=== PATIENT | male | born 1960 | race Caucasian/White ===

== ENCOUNTER → 2018-10-01 | Outpatient (CLI) | payer BC ==
--- NOTE | 2018-10-01 15:16 | CTL ---
EXAMINATION TYPE: CT Low Dose Lung DATE OF EXAM ORDERED: 10/01/2018 HISTORY: Personal history tobacco use. Lung cancer screening CT DLP: 98.[address] CTDI: 2.8 mGy Automated exposure control for dose reduction was used. SCREENING VISIT: 1 COMPARISON: None TECHNIQUE: Low dose computed tomography scan was performed through the chest at 1 mm thick sections a nd reconstructed images in the coronal plane at [address] DIAGNOSTIC QUALITY: Satisfactory FINDINGS: LUNG NODULES: None. LUNGS: COPD: Severity: Moderate Fibrosis: Severity: Moderate Lymph nodes: There is an retrocaval pretracheal lymph node shows a short axis of 12 mm axial image 12 6 Other findings: Some areas of platelike thickening along the patient or right upper lobe axial image 131 as well as p latelike area of soft tissue in the right upper lobe axial image 124 measuring less than 5 mm in size . RIGHT PLEURAL SPACE: Effusion: None Calcification: None Thickening: None Pneumothorax: None LEFT PLEURAL SPACE: Effusion: None Calcification: None Thickening: None Pneumothorax: None HEART: Heart Size: Small Coronary calcification: Minimal Pericardial effusion: None OTHER FINDINGS: Upper abdomen: 2 hypodense foci within the liver measuring approximately 1 cm and 1.2 cm axial image 300 statistically are likely represent cysts Bony thorax: Thoracic spondylosis noted Supraclavicular region: Unremarkable Other: IMPRESSION: Benign FOLLOW UP CT CHEST RECOMMENDATION: [address] LUNG RAD: 2S Patient's abnormal enlarged retrocaval pretracheal lymph node is potentially clinically significant. Consider dedicated contrast-enhanced chest CT follow-up.
== END | disposition home or self-care (01) ==
LOC: RADCTMAIN 12:55
PROVIDERS: ATTEND Nurse Practitioner
DX: Z12.2 Encounter for screening for malignant neoplasm of respiratory organs (principal); Z87.891 Personal history of nicotine dependence

== ENCOUNTER 2018-10-26 11:07 | Day surgery (SDC) | payer BC ==
[2018-10-21 15:53] VITALS: BMI 24.8
[~2018-10-26 11:07] MED LIST: LACTATED RINGERS 1,000 ML IV SCH; LIDOCAINE 1% 20 ML VIAL (10MG/ML) FOR IV START INTRADERMA PRN
[2018-10-26 11:22] VITALS: TEMP 98.3
[2018-10-26] MEDS ORDERED: LACTATED RINGERS 1,000 ML IV ONE (11:22)
[2018-10-26] MEDS ORDERED: LIDOCAINE 1% 20 ML VIAL (10MG/ML) FOR IV START INTRADERMA ONE (11:26)
[2018-10-26] MEDS ORDERED: PROPOFOL 10 MG/ML 20 ML VIAL IV ONE (11:53)
[2018-10-26 12:21] VITALS: RESP 16
--- NOTE | 2018-10-26 12:27 | P.PCN ---
Date of Procedure: 10/26/18 Procedure(s) Performed: Procedure: Total colonoscopy. Preoperative diagnosis: Screening for neoplasia. Postoperative diagnosis: Diverticulosis with no evidence of acute diverticulitis, strictures, polyps or cancer. Preparation: HalfLytely prep. Sedation: Was provided by anesthesia. Brief clinical history: The patient is a 58-year-old male who is scheduled for this evaluation for screening for neoplasia age being his risk factor. There is no family history of colon cancer. The patient has no abdominal complaints, bleeding or anemia. This would be his first colonoscopy. Procedure: With the patient on his left lateral decubitus position and after informed consent and adequate sedation, the perianal area was inspected and it did not show any fissures or fistulas. There were no masses felt on digital rectal examination. The Olympus CFH 190L video colonoscope was then inserted in the rectum in the usual fashion and advanced to the cecum. The mucosa appeared healthy. There was multiple diverticular orifices seen scattered along the length of the bowel mostly on the left side with no evidence of acute diverticulitis or strictures. The mucosa appeared healthy. No polyps or tumors were seen. I retroflexed the endoscope in the rectum before the endoscope was withdrawn. The patient tolerated the procedure well. Plan: The patient was reassured. Discussed dietary measures. He will follow up with you as planned and I recommended repeat exam in 10 years.
[2018-10-26 12:53] VITALS: BP 143/84; PULSE 69
== END 2018-10-26 13:05 | disposition home or self-care (01) ==
LOC: ORWHC2ENDO 11:07
DX: Z12.11 Encounter for screening for malignant neoplasm of colon (principal); F17.210 Nicotine dependence, cigarettes, uncomplicated; Z79.899 Other long term (current) drug therapy
CPT/HCPCS: J2704; G0121; 45378

== ENCOUNTER → 2018-10-27 | Outpatient (CLI) | payer BC ==
--- NOTE | 2018-10-27 14:04 | CT ---
EXAMINATION TYPE: CT chest w con DATE OF EXAM: 10/27/2018 COMPARISON: 10/01/2018 HISTORY: Enlarged lymph nodes CT DLP: 319.2 mGycm Automated exposure control for dose reduction was used. CONTRAST: CT scan of the chest is performed with IV Contrast, patient injected with 100 mL of Isovue 300. FINDINGS: LUNGS: The lungs are grossly clear, there is no concerning parenchymal mass or nodule identified. T here is no pleural effusion or pneumothorax seen. The tracheobronchial tree is patent. Scattered emp hysematous changes noted. MEDIASTINUM: Pretracheal lymph node is noted and measures 1.2 cm in short axis. There are several sub centimeter lymph nodes within the AP window as well as the high right paratracheal region. Right elsa r adenopathy measures 1.5 cm. 1 cm lymph node left hilum. Thoracic aorta is of normal caliber. The he art is not enlarged. UPPER ABDOMEN: Too small to characterize hypoattenuating lesion left hepatic lobe measuring 6 mm as w ell as an additional lesion anterior segment right hepatic lobe measuring 9 mm. These likely reflect a small cyst. OTHER: No additional significant abnormality is seen. IMPRESSION: 1. Nonspecific mediastinal and hilar adenopathy. Correlate clinically and appropriate follow-up advis ed.
== END | disposition home or self-care (01) ==
LOC: RADCTMAIN 13:35
PROVIDERS: ATTEND Family Medicine
DX: R59.0 Localized enlarged lymph nodes (principal)
CPT/HCPCS: 71260; Q9967

== ENCOUNTER → 2018-12-11 | Outpatient (CLI) | payer BC ==
--- NOTE | 2018-12-14 06:26 | PE ---
EXAMINATION TYPE: PET CT fusion skull to thigh DATE OF EXAM: 12/11/2018 COMPARISON: Chest CT October 27, 2018 HISTORY: Solitary pulmonary nodule TECHNIQUE: Following the intravenous administration of 10.56 mCi of F-18 FDG, whole body images are performed from the skull base to the midthigh. Images are reviewed on the computer in the coronal, a xial, and sagittal planes. Reconstructed rotating images are created on independent workstation and reviewed on the computer. A noncontrast CT is performed in conjunction with the PET scan. SCAN: Initial Scan FINDINGS: SKULL BASE AND NECK: No areas of suspicious hypermetabolic uptake. CHEST, MEDIASTINUM, AND HILAR REGION: Mild to moderate underlying emphysematous changes redemonstrate d. No suspicious parenchymal nodules or areas of hypermetabolic uptake in the lungs. There is hypermetabolic roughly 1 cm left hilar lymph node axial image 77 with max SUV of 2.50. There is prominent left AP window lymph node with mild hypermetabolic uptake axial image 77 Max SUV of 2.3 2. There is prominent roughly 1 cm right tracheobronchial lymph node axial image 79, max SUV of 2.49. There is prominent roughly 1 cm right hilar lymph node axial image 82 with max SUV of 2.9. There are prominent subcarinal lymph nodes, largest left aspect measures 2.2 x 1.0 cm axial image 87, max SUV is 2.86. ABDOMEN AND PELVIS: No suspicious areas of abnormal hypermetabolic uptake. OSSEOUS STRUCTURES: No suspicious areas of abnormal hypermetabolic uptake. OTHER CT: Nasal septum is deviated to the right of midline. There is mild to moderate calcified plaque of the aorta extends into branch vessels. There is mild to moderate disc space narrowing L4-L5 and L5-S1 levels. Prostate gland is upper limits of normal in size. IMPRESSION: Nonspecific mildly hypermetabolic thoracic lymph nodes favor postinflammatory granulomato us, or infectious etiology without parenchymal nodule or mass.
== END | disposition home or self-care (01) ==
LOC: RADPETMAIN 14:41
PROVIDERS: ATTEND Internal Medicine
DX: R91.1 Solitary pulmonary nodule (principal); R59.0 Localized enlarged lymph nodes
CPT/HCPCS: 78815; A9552